=== PATIENT | female | born 1970 | race Caucasian/White ===

== ENCOUNTER → 2023-03-29 | Outpatient (CLI) | payer OTHER ==
[2023-03-29 14:39] VITALS: BP 107/74; PULSE 69; RESP 16; TEMP 98.4
--- NOTE | 2023-03-29 15:33 | P.HPOB ---
History of Present Illness H&P Date: 03/29/23 Chief Complaint: The patient is here for her routine gynecologic exam. This is a 53-year-old 013 with an LMP of 2012. The patient is here to establish with this office. It has been about one half years since her last pelvic exam. She is status post endometrial ablation approximately in 2007. She had very light spotting periodically after the ablation instead of regular menstrual periods. All bleeding and spotting stopped about in 2012. 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 She is currently without gynecologic complaints. Review of Systems The patient's weight has been stable over the last year. She denies respiratory, cardiac, or G.I. problems. Past Medical History Past Medical History: No Reported History Additional Past Medical History / Comment(s): Precancerous breast changes leading to bilateral mastectomies. Seasonal ALLERGIES. 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 She had a cryotherapy of the cervix in her 20s. Patient tested negative for BRCA genes. History of Any Multi-Drug Resistant Organisms: None Reported Past Surgical History: Appendectomy, Breast Surgery, Section, Tubal Ligation, Uterine Ablation Additional Past Surgical History / Comment(s): TAY MASTECTOMY WITH RECONSTRUCTION 2016, C SECTION X2(one set twins). Cryotherapy of the cervix in her 20s. Endometrial ablation approximately 2007. Laparoscopy. Colonoscopy 2021(next after 5yr). 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 - Past Family History Mother Family Medical History: Cancer Additional Family Medical History / Comment(s): Breast cancer. Sister(s) Family Medical History: Cancer Additional Family Medical History / Comment(s): Breast cancer. Father Additional Family Medical History / Comment(s): Guillain-Avendaño syndrome. . Paternal grandmother had breast cancer. Medications and Allergies Home Medications Medication Instructions Recorded Confirmed Type Fexofenadine HCl [Gina Allergy] 1 tab PO DAILY 03/29/23 03/29/23 History Multivitamin [Multivitamins Adult 1 tab PO DAILY 03/29/23 03/29/23 History Gummies] PARoxetine [Paxil] 20 mg PO DAILY 03/29/23 03/29/23 History Allergies Allergy/AdvReac Type Severity Reaction Status Date / Time No Known Allergies Allergy Unverified 03/29/23 14:02 Exam Vital Signs Temp Pulse Resp BP Pulse Ox 03/29/23 14:04 98.4 F 69 16 107/74 98 Intake and Output 03/29/23 03/29/23 03/29/23 06:59 14:59 22:59 Other: Weight 76.204 kg Height 5 feet 7 inches, weight 168 pounds, BMI 26.3. This is a well-developed well-nourished white female who is alert and oriented times 3 in no acute distress. HEENT: Within normal limits. NECK: Supple without mass or thyromegaly. CHEST AND LUNGS: Clear to auscultation. HEART: Regular rate and rhythm. BREASTS: Are without mass or discharge. AXILLARY EXAM: Negative for adenopathy. BACK: Negative for CVA tenderness. ABDOMEN: Soft, nontender, without palpable masses. PELVIC EXAM: Normal external genitalia with minimal atrophy. Cervix and vagina appear normal with mild atrophy. There is no unusual discharge. There is no evidence of prolapse. The uterus is midposition, nongravid size and nontender. There are no palpable adnexal masses or tenderness. RECTAL EXAM: Rectovaginal exam is negative for mass or tenderness and is negative for occult blood. EXTREMITIES: Nontender. IMPRESSION: 1. 53-year-old menopausal female status post bilateral mastectomies for precancerous breast findings status post reconstruction with implants. 2. Normal gynecologic exam. 3. Patient has been on Paxil 30 mg daily for hot flashes. She has been on Paxil for several years. 4. Strong family history of breast cancer. The patient states she tested BRCA negative. PLAN: 1. Pap smear cotest was performed. 2. Self breast awareness was discussed with the patient. We have also discussed symptoms associated with inflammatory breast cancer. 3. Mammograms have been discontinued after her bilateral mastectomies. 4. Osteoporosis prevention was discussed. I have stressed the importance of adequate calcium, vitamin D and regular exercise. Recommended amounts of calcium and vitamin D were also discussed. 5. I recommended that she try to wean down with the Paxil she has used for hot flashes. She will be given a prescription for Paxil 20 mg which she will take daily. She will continue to try to wean over the upcoming year. The electronic prescription will be sent to [facility] in [place]. 6. We have discussed many reasons why is is important to try to quit smoking. 7. She was advised to return in one year for her annual well woman exam and as needed.
== END ==
LOC: WWCWWP 13:54
PROVIDERS: ATTEND Obstetrics & Gynecology
DX: F17.210 Nicotine dependence, cigarettes, uncomplicated (principal); Z78.0 Asymptomatic menopausal state; Z80.3 Family history of malignant neoplasm of breast; Z90.13 Acquired absence of bilateral breasts and nipples; Z85.3 Personal history of malignant neoplasm of breast; Z98.82 Breast implant status

== ENCOUNTER → 2024-07-10 | Outpatient (CLI) | payer OTHER ==
[2024-07-10 09:25] VITALS: BP 110/76; PULSE 64; RESP 16; TEMP 97.9
--- NOTE | 2024-07-10 09:34 | P.HPOB ---
History of Present Illness H&P Date: 07/10/24 Chief Complaint: The patient is here for her routine gynecologic exam. This is a 54-year-old -0-1-3 with an LMP of 2012. The patient states she has been doing well on Paxil 20 mg daily for hot flashes. She infrequently has hot flashes. She also states she has been feeling abdominal bloating for about 6 months to 1 year. She describes this as feeling gassy and bloated. She is otherwise without complaints. Review of Systems She has gained about 4 pounds over the past year. She denies respiratory or cardiac problems. GI: She has been feeling gassy and bloated as in the HPI. She states she never has been very regular with her bowel movements and typically does not move her bowels daily. Past Medical History Past Medical History: No Reported History Additional Past Medical History / Comment(s): Precancerous breast changes leading to bilateral mastectomies. Seasonal ALLERGIES. 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 She had a cryotherapy of the cervix in her 20s. Patient tested negative for BRCA genes. History of Any Multi-Drug Resistant Organisms: None Reported Past Surgical History: Appendectomy, Breast Surgery, Section, Tubal Ligation, Uterine Ablation Additional Past Surgical History / Comment(s): TAY MASTECTOMY WITH RECONSTRUCTION 2016, C SECTION X2(one set twins). Cryotherapy of the cervix in her 20s. Endometrial ablation approximately 2007. Laparoscopy. Colonoscopy 2021(next after 5yr). 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 - Past Family History Mother Family Medical History: Cancer Additional Family Medical History / Comment(s): Breast cancer. Sister(s) Family Medical History: Cancer Additional Family Medical History / Comment(s): Breast cancer. Father Additional Family Medical History / Comment(s): Guillain-Avendaño syndrome. . Paternal grandmother had breast cancer. Medications and Allergies Home Medications Medication Instructions Recorded Confirmed Type Fexofenadine HCl [Gina Allergy] 1 tab PO DAILY 03/29/23 03/29/23 History Multivitamin [Multivitamins Adult 1 tab PO DAILY 03/29/23 03/29/23 History Gummies] PARoxetine [Paxil] 20 mg PO DAILY #90 tab 03/29/23 Rx Allergies Allergy/AdvReac Type Severity Reaction Status Date / Time No Known Allergies Allergy Unverified 07/10/24 08:59 Exam Intake and Output 07/09/24 07/10/24 07/10/24 22:59 06:59 14:59 Other: Weight 78.018 kg Height 5 feet 8 inches, weight 172 pounds, BMI 26.2. Blood pressure 110/76, temperature 97.9, pulse 64, pulse oximeter 99%. This is a well-developed well-nourished white female who is alert and oriented times 3 in no acute distress. HEENT: Within normal limits. NECK: Supple without mass or thyromegaly. CHEST AND LUNGS: Clear to auscultation. HEART: Regular rate and rhythm. BREASTS: Are without mass or discharge. Breasts are consistent with bilateral nipple sparing mastectomies with bilateral implants. AXILLARY EXAM: Negative for adenopathy. BACK: Negative for CVA tenderness. ABDOMEN: Soft, nontender, without palpable masses. PELVIC EXAM: Normal external genitalia with mild atrophy. Cervix and vagina appear normal with mild atrophy. There is no unusual discharge. There is no evidence of prolapse. The uterus is midposition, nongravid size and nontender. There are no palpable adnexal masses or tenderness. RECTAL EXAM: Rectovaginal exam is negative for mass or tenderness and is negative for occult blood. EXTREMITIES: Nontender. IMPRESSION: 1. 54-year-old menopausal female status post bilateral mastectomies for precancerous breast findings status post reconstruction with implants. 2. Normal gynecologic exam. 3. Frequent feelings of abdominal bloating and feeling gassy for 6 to 12 months. She states there are times when she is moved her bowels and has passed gas that she still feels bloated. Differential diagnosis will include intestinal gas and GI causes for bloating as well as ovarian neoplasm, though this would be less likely than a GI cause. 4. Strong family history of breast cancer and the patient states she tested negative for the BRCA gene mutations. PLAN: 1. Pap smear was deferred since she had a negative Pap smear cotest on 03/29/2023. 2. Self breast awareness was discussed with the patient. We have also discussed symptoms associated with inflammatory breast cancer. 3. Mammograms have been discontinued because of her history of bilateral mastectomies. 4. Pelvic ultrasound was recommended because of her frequent feelings of abdominal bloating. This will be used to rule out an ovarian neoplasm as a possible cause for the bloating. 5. She will continue Paxil, which she has used successfully for vasomotor symptoms. We will plan on weaning from this. She will start by taking half a tablet, (10mg) every other day while she takes a full tablet every other day. If she does well with this, she will go to a half of tablet daily. She can continue to a half a tablet every other day, then discontinue if she is doing well. Electronic prescription for Paxil 20 mg daily will be sent to [facility] in [place]. 6. She was advised to return in one year for her annual well woman exam and as needed.
== END ==
LOC: WWCWWP 08:40
PROVIDERS: ATTEND Obstetrics & Gynecology
DX: N95.1 Menopausal and female climacteric states (principal); R14.0 Abdominal distension (gaseous); Z12.31 Encounter for screening mammogram for malignant neoplasm of breast; Z90.13 Acquired absence of bilateral breasts and nipples; Z80.3 Family history of malignant neoplasm of breast

== ENCOUNTER → 2024-07-24 | Outpatient (CLI) | payer OTHER ==
--- NOTE | 2024-07-24 15:18 | US ---
EXAMINATION TYPE: US pelvis complete transvag DATE OF EXAM: 07/24/2024 COMPARISON: 05/10/2022 CLINICAL INDICATION: Female, 54 years old with history of R140 ABD BLOATING; Hx ablation in 2007; pat ient denies any signs, symptoms, or relevant history TECHNIQUE: Transvaginal (TV) and Transabdominal (TA) . Transabdominal grayscale sonographic images of the pelvis were acquired. Transvaginal sonographic im ages were medically necessary to better assess the following anatomy: Uterus, ovaries, and endometriu m Doppler imaging: Not performed. FINDINGS: Date of LMP: 2007 EXAM MEASUREMENTS: Uterus: 5.0 x 2.9 x 4.1 cm Endometrial Stripe: 0.4 cm Right Ovary: 2.0 x 1.5 x 1.3 cm Left Ovary: 2.3 x 1.7 x 1.6 cm 1. Uterus: Anteverted Cystic areas redemonstrated 2. Endometrium: WNL 3. Right Ovary: WNL 4. Left Ovary: WNL 5. Bilateral Adnexa: WNL 6. Posterior cul-de-sac: WNL Heterogenous anteverted uterus. Incidental nabothian cysts. Endometrium within normal limits. There i s a questionable solid lesion within the cervix measuring 0.6 x 0.7 x 0.8 cm. Both ovaries appear wit hin normal limits. No free fluid. IMPRESSION: 1. No ultrasound evidence for acute process. 2. Questionable subcentimeter solid lesion within the cervix. Recommend direct visualization. [facility], , 07/24/2024 3:16 PM
== END | disposition home or self-care (01) ==
LOC: RADUSWWP 14:45
PROVIDERS: ATTEND Obstetrics & Gynecology
DX: R14.0 Abdominal distension (gaseous) (principal)
CPT/HCPCS: 76830; 76856